=== PATIENT | male | born 1950 | race African-American/Black ===

== ENCOUNTER 2019-12-31 11:45 | Observation (INO) | payer MEDICARE, BC ==
[~2019-12-31] VITALS: Ht 167.6 cm; Wt 81.8 kg
[~2019-12-31 11:45] MED LIST: AMLODIPINE PO; CARAFATE1 G PO; CATAPRES0.2 MG PO; GLUCOTROL 5 MG T5 MG PO; NORVASC10 MG PO; NORVASC5 MG PO; PHOSLO667 MG PO; PROTONIX40 MG PO; RENVELA800 MG PO; [UNRECOGNIZED DRUG - OTHER]
--- NOTE | 2019-12-31 17:27 | MORECARE ---
CASE MANAGEMENT DISCHARGE SUMMARY PATIENT: JUAN WOLFE UNIT: [id number] ADM DATE: 12/31/19 AGE: 69 : 48 SEX: M ROOM/BED: D.2101 AUTHOR: REBECCA BEAL PHYSICIAN: REFERRING PHYSICIAN: RO MYLES DO DATE OF SERVICE: 12/31/19 Discharge Plan Patient Name: JUAN WOLFE Facility: [facility]:[place] : 1950 Planned Disposition: Anticipated Discharge Date: Discharge Date: Expected LOS: Initial Reviewer: [email or web address] Initial Review Date: 12/31/2019 Generated: 12/31/19 6:26 pm Patient Name: JUAN WOLFE Page [phone] at 1727 All edits/amendments must be made on the electronic document DICTATION DATE: 12/31/191726 SENIOR MOBILE APPLICATION DEVELOPER: BLAISE 12/31/191726 RPT#: [id number] DC DATE: STATUS: ADM IN [facility] [address] [place] [address] END OF REPORT
[2019-12-31 17:56] VITALS: Ht 167.6 cm; Wt 81.8 kg
--- NOTE | 2019-12-31 19:00 | NUR ---
REPORT RECEIVED, WILL CONTINUE POC. PATIENT IS AAOX4, SITTING UP IN BED RECEIVED DIALYSIS AT THIS TIME. NO S/S OF DISTRESS OBSERVED, RR EVEN AND UNLABORED ON 2L O2 VIA NC. PATIENT DENIES NEEDS AT THIS TIME. CL IN REACH, BED LOCKED AND LOWERED. COVID-19 PRECAUTIONS TAKING PENDING RESULTS. WILL CTM.
[2020-01-01 04:00] VITALS: BP 164/92
[2020-01-01 06:40] LABS: BASOPHILS 0.2 % (0-2); EOSINOPHILS 2.9 % (0-7); HEMATOCRIT 33.3 % (42.0-54.0); HEMOGLOBIN 10.3 g/dL (13.5-17.5); IMMATURE GRANULOCYTES 0.1 % (0-5); LYMPHOCYTES 10.1 % (15-50); MCH 31.3 pg (26.0-34.0); MCHC 30.9 g/dL (31.0-37.0); MCV 101.2 fL (80.0-100.0); MEAN PLATELET VOLUME 9.7 fL (7.4-10.4); MONOCYTES 7.5 % (2-11); NEUTROPHILS 79.2 % (40-80); RBC 3.29 10x6/uL (4.20-6.10); RDW 13.4 % (11.5-14.5); WBC 9.4 10x3/uL (4.8-10.8)
[2020-01-01 06:42] LABS: ANION GAP 13.6 mmol/L (8-16); CALCIUM 8.4 mg/dL (8.5-10.1); CARBON DIOXIDE 28.8 mmol/L (21.0-32.0); CREATININE - SERUM 11.5 mg/dL (0.6-1.3); POTASSIUM - SERUM 4.4 mmol/L (3.5-5.1)
[2020-01-01 06:48] LABS: PLATELET COUNT 279 10x3/uL (130-400)
[2020-01-01 08:26] VITALS: BP 183/96
--- NOTE | 2020-01-01 09:06 | MORECARE ---
CASE MANAGEMENT DISCHARGE SUMMARY PATIENT: JUAN WOLFE UNIT: [id number] ADM DATE: 12/31/19 AGE: 69 : 48 SEX: M ROOM/BED: D.2103 AUTHOR: REBECCA BEAL PHYSICIAN: REFERRING PHYSICIAN: RO MYLES DO DATE OF SERVICE: 01/01/20 Discharge Plan Patient Name: JUAN WOLFE [facility] [facility] 1950 Planned Disposition: Anticipated Discharge Date: Discharge Date: Expected LOS: Initial Reviewer: [email or web address] Initial Review Date: 12/31/2019 Generated: 01/01/20 10:06 am Coverage Notice Reviewer: [id number] - Stephanie Field Notice Issued Date-Time: 01/01/2020 8:33 Notice Type: Medicare Outpatient Observation Notice Notice Delivered To: Patient Relationship to Patient: Self Color Paste Mixing Supervisor Name: Juan Wolfe Delivery Method: HAND - Hand Delivered Samira Days: Prior Verbal Notification: Recipient Understood Notice: Yes Recipient Signature: Yes Med Rec Note Co-signed by Attending: Coverage Notice Comment: EVARISTO signed with patient permission (he is in isolation). Original provided by patient's nurse to patient. Copy to chart. Last DP export: 12/31/19 4:27 p Patient Name: JUAN WOLFE Page [phone] at 0906 All edits/amendments must be made on the electronic document DICTATION DATE: 01/01/20905 MARQUETRY WORKER: BLAISE 01/01/20905 RPT#: [id number] DC DATE: STATUS: ADM IN [facility] [address] [place] [address] END OF REPORT
--- NOTE | 2020-01-01 14:55 | MORECARE ---
CASE MANAGEMENT DISCHARGE SUMMARY PATIENT: JUAN WOLFE UNIT: [id number] ADM DATE: 12/31/19 AGE: 69 : 48 SEX: M ROOM/BED: D.2101 AUTHOR: REBECCA BEAL PHYSICIAN: REFERRING PHYSICIAN: RO MYLES DO DATE OF SERVICE: 01/01/20 Discharge Plan Patient Name: JUAN WOLFE [facility] [facility] 1950 Planned Disposition: Anticipated Discharge Date: Discharge Date: Expected LOS: Initial Reviewer: [email or web address] Initial Review Date: 12/31/2019 Generated: 01/01/20 3:54 pm Comments DCP- Discharge Planning Updated by [email or web address]: Stephanie Field on 01/01/20 1:[address] Patient has been re-tested here at [facility] on 12/31, the results should be back this evening. He is a patient at [facility], M/W/F. Coverage Notice Reviewer: [id number] - Stephanie Field Notice Issued Date-Time: 01/01/2020 8:33 Notice Type: Medicare Outpatient Observation Notice Notice Delivered To: Patient Relationship to Patient: Self Infrastructure Architect Name: Juan Wolfe Delivery Method: HAND - Hand Delivered Samira Days: Prior Verbal Notification: Recipient Understood Notice: Yes Recipient Signature: Yes Med Rec Note Co-signed by Attending: Coverage Notice Comment: LOERA signed with patient permission (he is in isolation). Original provided by patient's nurse to patient. Copy to chart. Last DP export: 01/01/20 8:06 a Patient Name: JUAN WOLFE Page [phone] at 1455 All edits/amendments must be made on the electronic document DICTATION DATE: 01/01/201453 REACTOR TECHNICIAN: BLAISE 01/01/201453 RPT#: [id number] DC DATE: STATUS: ADM IN [facility] [address] [place] [address] END OF REPORT
--- NOTE | 2020-01-01 15:15 | NUR ---
I have reviewed this patient and I concur with the Shift Assessment completed by the Licensed Practical Nurse today this shift.
--- NOTE | 2020-01-01 19:15 | NUR ---
REPORT RECEIVED, WILL CONTINUE POC. PATIENT IS AAOX4, SITTING UP IN SIDE OF BED. NO S/S OF DISTRESS OBSERVED, RR EVEN AND UNLABORED ON 2L O2 VIA NC. PIV TO LT HAND, PATENT, SL. PATIENT DENIES NEEDS AT THIS TIME. CL IN REACH, BED LOCKED AND LOWERED. NEGATIVE COVID RESULTS RECEIVED AND REPORTED TO PATIENT. WILL CTM.
[2020-01-01 20:00] VITALS: BP 143/78
--- NOTE | 2020-01-01 20:00 | NUR ---
NOTIFIED BY LAB THAT PT'S COVID TEST RESULT IS NEGATIVE. PRIMARY NURSE NOTIFIED. ISOLATION DISCONTINUED.
--- NOTE | 2020-01-02 03:54 | NUR ---
I have reviewed this patient and I concur with the Shift Assessment completed by the Licensed Practical Nurse today this shift.
--- NOTE | 2020-01-02 06:29 | NUR ---
TRANSFERED PATIENT TO ROOM 2106 VIA WHEELCHAIR. PATIENT SITTING UP IN CHAIR, NO S/S OF DISTRESS OBSERVED, RR EVEN AND UNLABORED ON 2L O2 VIA NC. CL IN REACH, BED LOCKED AND LOWERED. WILL CTM.
[2020-01-02 08:00] VITALS: BP 150/83
[2020-01-02] MEDS ORDERED: ZITHROMAX250 MG PO (09:00)
--- NOTE | 2020-01-02 11:59 | NUR ---
SALINE LOCK TAKEN OUT AND DRESSING APPLIED, DISCHARGE INSTRUCTIONS WITH SISTER, TO CAR VIA WHEELCHAIR. STABLE CONDITION.
--- NOTE | 2020-01-02 14:03 | MORECARE ---
CASE MANAGEMENT DISCHARGE SUMMARY PATIENT: JUAN WOLFE UNIT: [id number] ADM DATE: 12/31/19 AGE: 69 : 48 SEX: M ROOM/BED: D.210 AUTHOR: REBECCA BEAL PHYSICIAN: REFERRING PHYSICIAN: RO MYLES DO DATE OF SERVICE: 01/02/20 Discharge Plan Patient Name: JUAN WOLFE [facility] [facility] 1950 Planned Disposition: Anticipated Discharge Date: Discharge Date: 01/02/2020 Expected LOS: Initial Reviewer: [email or web address] Initial Review Date: 12/31/2019 Generated: 01/02/20 3:03 pm Comments DCP- Discharge Planning Updated by [email or web address]: Stephanie Field on 01/01/20 1:[address] Patient has been re-tested here at on 12/31, the results should be back this evening. He is a patient at [facility], M/W/F. Coverage Notice Reviewer: [id number] - Stephanie Field Notice Issued Date-Time: 01/01/2020 8:33 Notice Type: Medicare Outpatient Observation Notice Notice Delivered To: Patient Relationship to Patient: Self Learning Center Instructor Name: Juan Wolfe Delivery Method: HAND - Hand Delivered Samira Days: Prior Verbal Notification: Recipient Understood Notice: Yes Recipient Signature: Yes Med Rec Note Co-signed by Attending: Coverage Notice Comment: LOERA signed with patient permission (he is in isolation). Original provided by patient's nurse to patient. Copy to chart. Last DP export: 01/01/20 1:54 p Patient Name: JUAN WOLFE Page 27913 at 1403 All edits/amendments must be made on the electronic document DICTATION DATE: 01/02/20 140 RUBBER INSULATOR: BLAISE 01/02/20 1403 RPT#: [id number] DC DATE:01/02/20 STATUS: DIS IN [facility] [address] [place] [address] END OF REPORT
== END 2020-01-02 12:01 | disposition home or self-care (01) ==
LOC: D.ER 11:45 → OBSVTIME 12:42 → D.M2 12:42
PROVIDERS: Family Medicine; ADMIT Internal Medicine; ATTEND Internal Medicine
DX: E11.22 Type 2 diabetes mellitus with diabetic chronic kidney disease (principal); I12.0 Hypertensive chronic kidney disease with stage 5 chronic kidney disease or end stage renal disease; N18.6 End stage renal disease; R06.02 Shortness of breath; Z20.828 Contact with and (suspected) exposure to other viral communicable diseases; N25.81 Secondary hyperparathyroidism of renal origin; Z79.84 Long term (current) use of oral hypoglycemic drugs; Z99.2 Dependence on renal dialysis

== ENCOUNTER 2020-01-03 05:10 | Inpatient (IN) | payer MEDICARE, BC ==
[~2020-01-03] VITALS: Ht 167.6 cm; Wt 108.9 kg
--- NOTE | ~2020-01-03 | HEMODYNAMI ---
PATIENT:JUAN WOLFE MEDICAL RECORD: [id number] : 46 [facility] [id number] ADMISSION DATE: 01/03/20 Generatedon:01/04/202011:26 Patient name: JUAN WOLFE Patient #: [id number] SSN: DO B: 1950 Date of study: 01/04/2020 Page: Of Hemodynamic Procedure Report Patient Data Patient Demographics Procedure consent was obtained First Name: JUAN Gender: Male Last Name: YANETH : 1950 Patient #: [id number] Age: 69 year(s) Race: Black Additional ID: [id number] Contact details [address]: [address] [place] [address] State: [place] City: [place] Zip code: [address] Past Medical History Allergies: No known allergies Admission Admission Data Admission Date: 01/03/2020 Admission Time: 6:51 Room #: D.2124 Height (in.): 66.14 BSA: 2.21 (m2) Height (cm.): 168 BMI: 40.39 (kg/m2) Weight (lbs.): 251.33 Weight (kg.): 114 Lab Results Lab Result Date: 01/04/2020 Lab Result Time: 0:00 Biochemistry Name Units Result Min Max BUN mg/dl 98 --(----)-* 7 18 Creatinine mg/dl 14.9 --(----)-* 0.6 1.3 eGFR ml/min 4 *-(----)-- 90 120 AM CBC Name Units Result Min Max Hematocrit % 31.5 *-(----)-- 42 54 Hemoglobin g/dl 9.8 *-(----)-- 13.5 17.5 Procedure Procedure Types Cath Procedure Diagnostic Procedure LHC LH w/Coronaries Sedation Charges Moderate Sedation up to 15 minutes PCI Procedure Coronary Stent Coronary Stent Initial Hemochron ACT Test Procedure Description Procedure Date Procedure Date: 01/04/2020 Procedure Start Time: 11:04 Procedure End Time: 11:24 Procedure Staff Name Function Marcelo Cisse MD Performing Physician Vannessa Machuca RT Monitor Rebecca Zhou RN Nurse Alberta Marie RT Scrub Madhuri Navarro RT Hospitality Recruiter Indication Chest pain Procedure Data Cath Procedure Fluoroscopy Diagnostic fluoroscopy Total fluoroscopy Time: 2.6 time: 2.6 min min Diagnostic fluoroscopy Total fluoroscopy dose: 891 dose: 891 mGy mGy Contrast Material Contrast Material Type Amount (ml) Isovue 300 98 Entry Location Entry Primary Successful Side Size Upsize Upsize Entry Closure Succes sful Closure Location (Fr) 1 (Fr) 2 (Fr) Remarks Device Remarks Femoral Right 5 Fr 6 Fr Exoseal artery Short Estimated blood loss: 10 ml Diagnostic catheters Device Type Used For End Catheter Placement MULTIPACK JL 4.0 5Fr Left Coronary catheter Angiography MULTIPACK 3DRC 5Fr Right Coronary catheter Angiography MULTIPACK Pigtail 5 Fr LV Angiography catheter Procedure Complications No complications Procedure Medications Medication Administration Route Dosage 0.9% NaCl I.V. Oxygen etCO2 Nasal cannula 2 l/min Lidocaine 2% added to field 20 Heparin Flush Bag added to field 2 bags (1000units/500ml NS) Versed I.V. 2 mg Fentanyl I.V. 50 mcg Heparin Bolus I.V. 5000 units Integrilin (Bolus I.V. 10.2 ml 2mg/ml) Integrilin Drip I.V. drip 9 ml/hr (75mg/100ml) Hemodynamics Rest BSA: 2.21 (m2) O2 Consumption: Estimated: 258.11 (ml/min) O2 Consumption indexed : Estimated:116.79 (ml/min/m) Heart Rate: 73 (bpm) Pressure Samples Time Site Value (mmHg) Purpose Heart Use Rate(bpm) 11:09 LV 123/26,48 Snapshot 57 Gradients Valve Time Site Site Mean SEP/DFP Peak To Heart Use 1 2 (mmHg) (sec/min) Peak Rate (mmHg) (bpm) Aortic 11:09 LV AO 50 Snapshots Pre Cath Intra NCS Post Cath Vital Signs Time Heart Resp SPO2 etCO2 NIBP (mmHg) Rhythm Pain Sedation Rate (ipm) (%) (mmHg) Status Level (bpm) 10:47:13 61 19 96 39.1 137/83(100) NSR 0 (11) 10(A) , No pain 10:51:43 62 17 99 42.1 130/88(120) NSR 0 (11) 10(A) , No pain 10:56:10 63 21 98 41.4 127/88(104) NSR 0 (11) 10(A) , No pain 11:00:34 66 22 98 40.6 126/81(96) NSR 0 (11) 10(A) , No pain 11:05:00 65 21 97 36.9 137/87(109) NSR 0 (11) 9(A) , No pain 11:09:26 57 16 98 22.5 130/77(110) SB 0 (11) 9(A) , No pain 11:14:07 57 20 96 36 124/74(100) SB 0 (11) 9(A) , No pain 11:18:31 55 34 98 46.6 133/89(111) SB 0 (11) 10(A) , No pain 11:22:57 56 17 98 45.1 131/90(109) SB 0 (11) 10(A) , No pain Medications Time Medication Route Dose Verified Delivered Reason Notes Effectiveness by by 10:45:59 0.9% NaCl I.V. kvo Marcelo Rebecca used for ml/hr [place] Abelardo procedure MD RAPP 10:46:05 Oxygen etCO2 2 Marcelo Rebecca used for Nasal l/min [facility] procedure cannula MD RAPP 10:46:12 Lidocaine 2% added 20ml Marcelo Robertson for local to vial [facility] anesthetic field MD COLLAZO 10:46:16 Heparin Flush added 2 Marcelo Marcelo used for Bag to bags [facility] procedure (1000units/500ml field MD COLLAZO NS) 11:02:43 Versed I.V. 2 mg Marcelo Rebecca for sedation St Tate Zhou MD, RN 11:02:52 Fentanyl I.V. 50 Marcelo Rebecca for sedation mcg St Tate Zhou MD, RN 11:12:00 Heparin Bolus I.V. 5000 Marcelo Rebecca for verif ied units [facility] anticoagulation with Dr. MD RAPP [place] 11:12:18 Integrilin I.V. 10.2 Marcelo Rebecca for verif ied (Bolus 2mg/ml) ml [facility] antiplatelet with Dr. MD RAPP therapy [place] 11:21:13 Integrilin Drip I.V. 9 Marcelo Rebecca for (75mg/100ml) drip ml/hr St Tate connell MD RN therapy Procedure Log Time Note 10:30:20 Informed consent obtained and on chart 10:30:22 Madhurianabell Navarro RT(R) sent for patient. Start room use. 10:31:06 Indication : Chest pain 10:32:39 Lab Result : BUN 98 mg/dl 10:32:39 Lab Result : eGFR AM 4 ml/min 10:32:39 Lab Result : Creatinine 14.9 mg/dl 10:32:39 Lab Result : Hematocrit 31.5 % 10:32:39 Lab Result : Hemoglobin 9.8 g/dl 10:32:49 Patient Height : 66.14 inches 10:32:54 Patient Weight : 251.33 lbs 10:33:25 Time tracking: Regular hours (M-F 7:00 - 5:00) 10:33:29 Procedure Status Urgent Heart Cath (IP). 10:33:38 Plan of Care:Hemodynamics will remain stable., Cardiac rhythm will remain stable., Comfort level will be maintained., Respiratory function will remain adequate., Patient/ family verbilizes understanding of procedure., Procedure tolerated without complication., Recovers from procedure without complications.. 10:33:50 H&P Date Dictated: 01/04/2020 Within 30 days and on chart., ER History on chart.. 10:34:11 Patient allergic to No known allergies 10:36:25 Patient received from Med II to CCL 1 Alert and oriented. Tansferred to table in Supine position. 10:36:49 Warm blankets applied, and linda hugger turned on for patient comfort. 10:36:50 Correct patient and procedure confirmed by team. 10:36:50 ECG and BP/O2 sat monitors applied to patient. 10:45:48 Vital chart was started 10:45:59 0.9% NaCl kvo ml/hr I.V. was administered by Rebecca Zhou RN; used for procedure; Verbal order read back and verified. 10:46:05 Oxygen 2 l/min etCO2 Nasal cannula was administered by Rebecca Zhou RN; used for procedure; Verbal order read back and verified. 10:46:12 Lidocaine 2% 20ml vial added to field was administered by Marcelo Cisse MD; for local anesthetic; Verbal order read back and verified. 10:46:16 Heparin Flush Bag (1000units/500ml NS) 2 bags added to field was administered by Marcelo Cisse MD; used for procedure; Verbal order read back and verified. 10:48:49 Baseline sample Acquired. 10:49:28 Rhythm: sinus rhythm 10:49:33 Full Disclosure recording started 10:49:39 Pre-procedure instructions explained to patient. 10:49:39 Pre-op teaching completed and patient verbalized understanding. 10:49:48 Family unavailable. 10:49:50 Patient NPO since Midnight. 10:49:54 Is the patient allergic to Iodine/contrast media? No. 10:50:12 Was the patient premedicated? No 10:50:54 Is patient on blood thinner?Yes 10:51:03 ACC The patient was administered the following blood thiners within the last 24 hours: ACCLovenox 10:51:08 Patient diabetic? No. 10:51:16 ----Pre-sedation anethsthesia assessment.---- 10:51:19 Previous problem with sedation/anesthesia? No ? 10:51:22 Snore? Yes 10:51:24 Sleep apnea? No 10:51:27 Deviated septum? Unknown 10:51:30 Opens mouth fully? Yes 10:51:32 Sticks out tongue? Yes 10:51:37 Airway obstruction? No ? 10:51:40 Dentures? No ? 10:52:23 IV patent on arrival in left hand with 0.9% NaCl at [facility]. 10:52:29 Lab results completed and on chart. 10:52:46 Stress Test: no; N/A ? 10:52:56 Right groin area was prepped with chlora-prep and draped in sterile fashion 10:52:59 Alarms reviewed by R. N. 10:53:00 Sharps counted by scrub and verified by R.N. 10:53:45 Use device set Femoral Dx 10:53:47 ACIST Syringe (00592) opened to sterile field. 10:53:47 Bag Decanter (2002) opened to sterile field. 10:53:48 Medline Cath Pack ([id number]) opened to sterile field. 10:53:49 ACIST Hand Control (46238) opened to sterile field. 10:53:50 ACIST Manifold (07462) opened to sterile field. 10:53:51 DIAGNOSTIC Multipack 5Fr catheter set (HU9212) opened to sterile field. 10:53:52 Tegaderm 4 x 4 (1626W) opened to sterile field. 10:53:55 SHEATH 5FR Whitney (PVS024) opened to sterile field. 10:53:55 EMERALD Guide Wire (637-661) opened to sterile field. 10:56:49 Risk of Mortality: 19.6 10:56:55 Risk of blood transfusion: 24.1 10:57:02 Risk of JEFF: 26.8 10:57:07 Zero performed for pressure channel P1 11:01:58 Physician arrived 11:01:59 --------ALL STOP TIME OUT------ 11:02:01 Final Timeout: patient, procedure, and site verified with staff and physician. All members of the team are in agreement. 11:02:04 Right groin site verified by team. 11:02:09 Fire Safety Assessment: A--An alcohol-based skin anteseptic being used preoperatively., C--Open oxygen or nitrous oxide is being used., D--An ESU, laser, or fiber-optic light is being used. 11:02:14 Physical assessment completed. ASA score P 2 - A patient with mild systemic disease as per Marcelo Cisse MD. 11:02:20 5) <15 or on dialysis Very severe, or end stage kidney failure. 11:02:25 Maximum allowable contrast dose (3.7 X eGFR X 0.75)11 ml. 11:02:31 Sedation plan: IV Moderate Sedation Medication:Versed, Fentanyl 11:02:43 Versed 2 mg I.V. was administered by Rebecca Zohu RN; for sedation; Verbal order read back and verified. 11:02:52 Fentanyl 50 mcg I.V. was administered by Rebecca Zhou RN; for sedation; Verbal order read back and verified. 11:03:01 Baseline sample Acquired. 11:03:21 Baseline sample Acquired. 11:03:28 Procedure started. 11:04:36 Local anesthetic to right femoral artery with Lidocaine 2% by Marcelo Cisse MD.INITIAL ACCESS ONLY 11:05:40 A 5 Fr sheath was inserted into the Right Femoral artery 11:05:48 A MULTIPACK JL 4.0 5Fr catheter was advanced over the wire and used for Left Coronary Angiography. 11:06:06 LCA angiography performed. 11:06:17 Injector settings: Ml/sec: 3, Volume: 6, 11:06:50 Catheter removed. 11:07:02 A MULTIPACK 3DRC 5Fr catheter was advanced over the wire and used for Right Coronary Angiography. 11:07:45 RCA angiography performed. 11:07:52 Injector settings: Ml/sec: 3, Volume: 6, 11:07:56 Catheter removed. 11:08:06 A MULTIPACK Pigtail 5 Fr catheter was advanced over the wire and used for LV Angiography. 11:08:43 GUIDE 6FR XBLAD 3.5 catheter ([id number]) opened to sterile field. 11:08:44 INFLATOR Merit BasixCompak (CG5135) opened to sterile field. 11:08:45 SHEATH 6FR Whitney (PAL022) opened to sterile field. 11:09:26 LV gram done using LEWIS 11:09:34 EF : 40 % 11:09:36 LV hemodynamics recorded. 11:09:39 Injector settings: Ml/sec: 5, Volume: 15, 11:09:41 Catheter removed. 11:10:00 BMW 300cm Nemaha 2 J wire ([id number]) opened to sterile field. 11:10:10 Proceeding to intervention. 11:10:25 Sheath upsized to a 6 Fr Short. 11:10:32 ACC Pre-intervention NO Flow is 3. 11:11:42 Pre PCI Site: Sycuan mLAD has 90% stenosis. 11:11:52 6 Fr XBLAD3.5 guide catheter was inserted over the wire 11:12:00 Heparin Bolus 5000 units I.V. was administered by Rebecca Zhou RN; for anticoagulation; verified with Dr. Ma Verbal order read back and verified. 11:12:00 DDN279 wire advanced. 11:12:18 Integrilin (Bolus 2mg/ml) 10.2 ml I.V. was administered by Rebecca Zhou RN; for antiplatelet therapy; verified with Dr. Ma Verbal order read back and verified. 11:14:21 Wire advanced across lesion. 11:16:41 Place stent Inflation Number: 1 A INTEGRITY RX 3.5 x 15 stent ([id number]) was prepped and advanced across the Mid LAD . The stent was deployed at 14 MARLENE for 0:30 (min:sec) . 11:17:08 Stent catheter was removed intact over wire. 11:17:11 ACC Post-intervention NO Flow is 3. 11:17:19 Post PCI Site: Sycuan mLAD has 0% stenosis. 11:17:22 Wire removed. 11:17:23 Guide catheter removed. 11:17:27 EXOSEAL 6Fr (EX600) opened to sterile field. 11:17:40 Contrast amount:Isovue 300 98ml. 11:17:46 Fluoroscopy time 02.60 minutes. 11:17:53 Fluoroscopy dose: 891 mGy 11:17:53 Flurop Dose total: 891 11:18:01 Dose Area Product 69213 mGy/cm. 11:18:11 Sheath removed intact; hemostasis achieved with Exoseal to the Right Femoral artery. 11:18:16 Procedure ended.(Physican Out) 11:19:39 Maximum allowable dose exceeded? Yes. 11:19:41 Sharps counted by scrub and verified by R.N. 11:19:43 Insertion/operative site no bleeding no hematoma. 11:19:48 Post-op/insertion site Right Femoral artery dressed using a 4 x 4 and Tegaderm. 11:19:56 Post-procedure physical assessment completed. ASA score P 2 - A patient with mild systemic disease as per Marcelo Cisse MD. 11:20:01 Post procedure rhythm: unchanged. 11:20:06 Estimated blood loss: 10 ml 11:20:09 Post procedure instruction explained to patient.Patient verbalizes understanding. 11:20:10 Patient needs reinforcement of post procedure teaching. 11:20:59 Procedure type changed to Cath procedure, Diagnostic procedure, LHC, LHC w/Coronaries, Sedation Charges, Moderate Sedation up to 15 minutes, PCI procedure, Coronary Stent, Coronary Stent Initial, Hemochron ACT Test 11:21:01 Procedure and supply charges have been captured, reviewed, submitted and are correct. 11:21:13 Integrilin Drip (75mg/100ml) 9 ml/hr I.V. drip was administered by Rebecca Zhou RN; for antiplatelet therapy; Verbal order read back and verified. 11:21:42 Procedure Complication : No complications 11:22:02 ACT drawn and resulted at 224 seconds. (normal therapeutic range 180-240 seconds). 11:22:19 Vital chart was stopped 11:22:24 [facility] Findings: MVD- PCI performed (see procedure note) 11:22:29 Operative report dictated upon procedure completion. 11:22:30 See physician's report for complete and final results. 11:22:33 Report given to [facility]. 11:22:38 Patient transfered to [facility] with Bed. 11:24:47 Procedure ended. 11:24:47 Full Disclosure recording stopped 11:25:02 End room use (Document Last) Intervention Summary Intervention Notes Time ActionType Lesion and Equipment Action# Pressure Duration Attributes Used 11:16:41 Place stent Mid LAD INTEGRITY RX 1 14 00:30 3.5 x 15 stent ([id number]) Device Usage Item Name Manufacture Quantity Catalog Hospital Part Current Minimal Lot# / Number Charge Number Stock Stock Serial# Code ACIST Acist 1 09429 582935 673033 215284 20 Syringe Medical (55884) Systems Inc Bag Decanter Microtek 1 2001S 485353 71482 337438 5 (2001S) Medical Inc. Medline Cath Medline 1 [id number] 462824 63782 530941 5 Pack ([id number]) ACIST Hand Acist 1 71033 160516 032389 599396 5 Control Medical (35827) Systems Inc ACIST Acist 1 30952 071195 951088 416965 5 Manifold Medical (80359) Systems Inc DIAGNOSTIC Cardinal 1 EU4424 595464 73965 810614 30 Multipack Health 5Fr catheter set (KZ8100) Tegaderm 4 x 3M 1 1626W 547614 307193 898810 5 4 (1626W) SHEATH 5FR Terumo 1 TMJ131 415814 972462 692721 5 Whitney (EIJ723) EMERALD Cardinal 1 502-455 184598 944937 916552 5 Guide Wire Health (502-455) MULTIPACK JL Cardinal 1 066182 5 4.0 5Fr Health catheter MULTIPACK Cardinal 1 581060 5 3DRC 5Fr Health catheter MULTIPACK Cardinal 1 333704 5 Pigtail 5 Fr Health catheter GUIDE 6FR Cardinal 1 [id number] 316620 596234 838679 10 XBLAD 3.5 Health catheter ([id number]) INFLATOR Merit 1 YI3254 509019 837156 479114 15 [facility] Medical BasixCompak (GC4056) SHEATH 6FR Terumo 1 TWD630 032812 923272 466089 40 Whitney (CNB292) BMW 300cm Almanza 1 [id number] 448942 863643 927737 5 Nem[place] 2 Vascular J wire (4437763N) INTEGRITY RX Medtronic 1 [id number] 696840 882996 323205 5 [id number] 3.5 x 15 stent ([id number]) EXOSEAL 6Fr Cardinal 1 EX600 494941 791575 349000 10 (EX600) Health Signature Audit [place] Stage Time Signature Unsigned Intra-Procedure 01/04/2020 Vannessa 11:25:35 AM Sven RT(R) (CV) Intra-Procedure 01/04/2020 Rebecca Zhou 11:26:06 AM RN Intra-Procedure 01/04/2020 Marcelo Heath 11:26:29 AM Tate COLLAZO [id number] [place] [address]
[~2020-01-03 05:10] MED LIST changes: +ZITHROMAX250 MG PO
[2020-01-03 06:07] LABS: BASOPHILS 0.1 % (0-2); EOSINOPHILS 0.9 % (0-7); HEMATOCRIT 34.1 % (42.0-54.0); HEMOGLOBIN 10.9 g/dL (13.5-17.5); IMMATURE GRANULOCYTES 0.1 % (0-5); LYMPHOCYTES 12.3 % (15-50); MCH 31.8 pg (26.0-34.0); MCV 99.4 fL (80.0-100.0); MEAN PLATELET VOLUME 9.6 fL (7.4-10.4); MONOCYTES 9.2 % (2-11); NEUTROPHILS 77.4 % (40-80); PLATELET COUNT 254 10x3/uL (130-400); RBC 3.43 10x6/uL (4.20-6.10); RDW 13.3 % (11.5-14.5); WBC 10.5 10x3/uL (4.8-10.8)
[2020-01-03 06:16] LABS: APTT 39.1 SECONDS (22.8-39.4); INR 1.06 (0.85-1.17); PROTIME 13.8 SECONDS (11.6-15.0)
[2020-01-03 06:25] LABS: CALC OSMOLALITY 300 mosm/kg (275-300); CALCIUM 8.4 mg/dL (8.5-10.1); CARBON DIOXIDE 24.4 mmol/L (21.0-32.0); CHLORIDE - SERUM 102 mmol/L (98-107); CREATININE - SERUM 13.2 mg/dL (0.6-1.3); GLUCOSE 117 mg/dL (74-106); POTASSIUM - SERUM 4.8 mmol/L (3.5-5.1); SODIUM 138 mmol/L (136-145); UREA NITROGEN 81 mg/dL (7-18); eGFR NON AFRICAN AMERICAN 4 mL/min (90-120)
[2020-01-03 06:35] LABS: ALBUMIN 3.1 g/dL (3.4-5.0); ALKALINE PHOSPHATASE 49 U/L (30-120); ALT (SGPT) 16 U/L (10-68); BILIRUBIN - TOTAL 0.33 mg/dL (0.2-1.3); CKMB 110.2 U/L (0.0-3.6); PROTEIN - SERUM 7.9 g/dL (6.4-8.2)
[2020-01-03 06:37] LABS: CREATINE KINASE 895 UL (21-232)
[2020-01-03 06:38] LABS: TROPONIN-I 43.383 ng/mL (0.000-0.060)
[2020-01-03 06:50] VITALS: BP 146/77
--- NOTE | 2020-01-03 07:30 | NUR ---
ARRIVE TO ROOM VIA WHEELCHAIR FROM ER. ALERT AND ORIENTED X4. AMBULATES TO BED. GAIT STEADY. RECIEVED LOVENOX INJ. DOCTORS AWARE OF ELEVATED TROPONIN. DENIES PAIN. CONTINUE ADMISSION PROCESS AND SAFETY PRECAUTIONS.
[2020-01-03 08:00] VITALS: BP 166/83
[2020-01-03 10:40] VITALS: BP 166/83; BMI 40.4
[2020-01-03 16:00] VITALS: BP 143/74
--- NOTE | 2020-01-03 19:05 | NUR ---
REPORT RECEIVED, PT CARE ASSUMED. PT LYING IN BED WITH EYES CLOSED, RR EVEN AND NONLABORED, NO S/S OF DISTRESS, AROUSES EASILY TO VOICE. DENIES ANY NEEDS AT THIS TIME. BED IN LOWEST, SRX2, CALL LIGHT WITHIN REACH. WILL CTM.
[2020-01-03 20:00] VITALS: BP 129/66
[2020-01-04] VITALS: BP 140/69
[2020-01-04 04:00] VITALS: BP 129/78
[2020-01-04 04:58] LABS: BASOPHILS 0.1 % (0-2); EOSINOPHILS 3.8 % (0-7); HEMATOCRIT 31.5 % (42.0-54.0); HEMOGLOBIN 9.8 g/dL (13.5-17.5); IMMATURE GRANULOCYTES 0.3 % (0-5); LYMPHOCYTES 12.1 % (15-50); MCH 31.2 pg (26.0-34.0); MCHC 31.1 g/dL (31.0-37.0); MCV 100.3 fL (80.0-100.0); MEAN PLATELET VOLUME 10.1 fL (7.4-10.4); MONOCYTES 7.4 % (2-11); NEUTROPHILS 76.3 % (40-80); PLATELET COUNT 266 10x3/uL (130-400); RBC 3.14 10x6/uL (4.20-6.10); RDW 13.3 % (11.5-14.5)
[2020-01-04 05:17] LABS: ANION GAP 20.3 mmol/L (8-16); CREATININE - SERUM 14.9 mg/dL (0.6-1.3); POTASSIUM - SERUM 5.3 mmol/L (3.5-5.1)
--- NOTE | 2020-01-04 07:20 | NUR ---
RECIEVE REPORT. ALERT AND ORIENTED X4. SITTING UP ON SIDE OF BED. SINUS RYTHM 68 ON TELEMETRY. DENIES ANY NEEDS. CONTINUE PLAN OF CARE AND SAFETY PRECAUTIONS.
[2020-01-04 09:00] VITALS: BP 139/82
--- NOTE | 2020-01-04 11:48 | NUR ---
ARRIVES BACK TO ROOM VIA BED FROM PLUG WIRER. SEDATED. AROUSES TO STIMULI. RT GROIN DRESSING CLEAN DRY INTACT. FREE FROM HEMATOMA. FREE FROM BLEEDING. PULSE PALBABLE BILATERALLY. BP-137/69, HR-57 SINUS ABRAHAM, O2-95% WITH 2L NC. CONTINUE PLAN OF CARE AND SAFETY PRECAUTIONS.
[2020-01-04 12:47] VITALS: Ht 167.6 cm; Wt 108.9 kg
[2020-01-04 20:00] VITALS: BP 143/77
[2020-01-05] VITALS: BP 110/48
[2020-01-05 04:00] VITALS: BP 120/66
[2020-01-05 07:06] LABS: CALCIUM 7.8 mg/dL (8.5-10.1); CARBON DIOXIDE 28.6 mmol/L (21.0-32.0); CREATININE - SERUM 11.7 mg/dL (0.6-1.3); POTASSIUM - SERUM 4.6 mmol/L (3.5-5.1)
[2020-01-05 07:19] LABS: BASOPHILS 0.2 % (0-2); EOSINOPHILS 3.4 % (0-7); HEMATOCRIT 33.5 % (42.0-54.0); HEMOGLOBIN 10.4 g/dL (13.5-17.5); IMMATURE GRANULOCYTES 0.3 % (0-5); LYMPHOCYTES 9.1 % (15-50); MCH 31.1 pg (26.0-34.0); MCV 100.3 fL (80.0-100.0); MEAN PLATELET VOLUME 10.5 fL (7.4-10.4); MONOCYTES 9.7 % (2-11); NEUTROPHILS 77.3 % (40-80); PLATELET COUNT 306 10x3/uL (130-400); RBC 3.34 10x6/uL (4.20-6.10); RDW 13.2 % (11.5-14.5); WBC 10.9 10x3/uL (4.8-10.8)
--- NOTE | 2020-01-05 07:20 | NUR ---
RECIEVE REPORT. RESTING IN BED WITH EYES CLOSED. NO SIGNS OF DISTRESS. CONTINUE PLAN OF CARE AND SAFETY PRECAUTIONS.
[2020-01-05 09:36] VITALS: BP 146/77
[2020-01-05 20:00] VITALS: BP 124/58
[2020-01-06 04:00] VITALS: BP 127/66
[2020-01-06 05:33] LABS: BASOPHILS 0.1 % (0-2); EOSINOPHILS 2.9 % (0-7); HEMATOCRIT 31.4 % (42.0-54.0); HEMOGLOBIN 9.8 g/dL (13.5-17.5); IMMATURE GRANULOCYTES 0.1 % (0-5); LYMPHOCYTES 11.6 % (15-50); MCHC 31.2 g/dL (31.0-37.0); MCV 99.4 fL (80.0-100.0); MONOCYTES 10.8 % (2-11); NEUTROPHILS 74.5 % (40-80); PLATELET COUNT 266 10x3/uL (130-400); RBC 3.16 10x6/uL (4.20-6.10); RDW 13.2 % (11.5-14.5); WBC 10.3 10x3/uL (4.8-10.8)
[2020-01-06 05:58] LABS: CALCIUM 7.8 mg/dL (8.5-10.1); CARBON DIOXIDE 25.5 mmol/L (21.0-32.0); CREATININE - SERUM 11.3 mg/dL (0.6-1.3); POTASSIUM - SERUM 4.5 mmol/L (3.5-5.1)
[2020-01-06 07:47] VITALS: BP 117/60
--- NOTE | 2020-01-06 08:18 | OP ---
PATIENT NAME: JUAN WOLFE MEDICAL RECORD: [id number] :46 LOCATION:D. D.2124 ADMISSION DATE:01/03/20 SURGEON: KIERSTEN SANABRIA MD DATE OF OPERATION: 01/04/2020 PROCEDURE: Left heart catheterization, selective coronary angiography, right femoral artery approach. CATHETERS: A 5-Argentine sheath, 5/4 left and right Tegan, 5/4 pig. The procedure was well tolerated. The patient returned to the wilkins, sheath removed. ExoSeal device placed. FINDINGS: Left ventriculography in 30-degree LEWIS view shows mild global hypokinesis, EF mildly reduced 30-40%. CORONARY ANATOMY: LEFT MAIN: Left main is free of disease. LAD: Has a discrete 90% stenosis in its mid portion, obviously infarct related artery. CIRCUMFLEX: Free of disease. RIGHT CORONARY ARTERY: Dominant artery, gives rise to PDA. Mild luminal irregularities, no flow obstructive disease. IMPRESSION: Intervention to LAD momentarily. DESCRIPTION OF PROCEDURE: A 5-Argentine sheath was exchanged for a 6-Argentine sheath. XB LAD guiding catheter provided excellent guide catheter support followed by a BMW wire placed across the 90% stenosed down the distal portion of vessel. Stent deployed was a 3.5 x 15 Integrity nondrug eluting stent to 15 atmospheres. Final angiography shows excellent resolution of 90% stenosis, no significant residual. NO flow was 3 throughout the procedure. Integrilin was used during the case. Sheath closed with ExoSeal device. Plavix was loaded in the lab. TRANSINT:[id number] Voice Confirmation ID: [id number] DOCUMENT ID: [id number] KIERSTEN SANABRIA MD at 0818 CC: [id number] DICTATION DATE: 01/04/20 1131 CV/CVN CV TSC SYSTEM OPERATOR: 01/04/20 2216 ADM IN [place] [id number] [place] [id number]
--- NOTE | 2020-01-06 09:41 | NUR ---
REPORT RECEIVED. WILL CONTINUE WITH POC. PT CURRENTLY SITTING ON EDGE OF BED. CALL LIGHT W/I REACH. FALL PRECAUTIONS IN PLACE. RR EVEN AND UNLABORED ON RA. L.HAND PIV SALINE LOCKED. NO S/S OF DISTRESS NOTED. PT DENIES ANY NEEDS AT THIS TIME. WILL CTM.
--- NOTE | 2020-01-06 14:06 | NUR ---
Nutrition Follow-up: Eating well overall. Ate 100% of breakfast this AM. Diet: Renal Wt: 250# (01/03) Labs noted: K+ 4.5, Ca 7.8 Meds noted: Protonix, Phoslo, electrolyte protocol -Need new wt; noted daily wts ordered. -RD following.
--- NOTE | 2020-01-06 14:35 | MORECARE ---
CASE MANAGEMENT DISCHARGE SUMMARY PATIENT: JUAN WOLFE UNIT: [id number] ADM DATE: 01/03/20 AGE: 69 : 48 SEX: M ROOM/BED: D.2084 AUTHOR: REBECCA BEAL PHYSICIAN: REFERRING PHYSICIAN: RO MYLES DO DATE OF SERVICE: 01/06/20 Discharge Plan Patient Name: JUAN WOLFE Facility: [facility]:[place] : 1950 Planned Disposition: Anticipated Discharge Date: Discharge Date: Expected LOS: Initial Reviewer: [email or web address] Initial Review Date: 01/03/2020 Generated: 01/06/20 3:35 pm Patient Name: JUAN WOLFE Page [id number] at 1435 All edits/amendments must be made on the electronic document DICTATION DATE: 01/06/20 1435 MOTOR BOSS: BLAISE 01/06/20 1435 RPT#: [id number] DC DATE: STATUS: ADM IN [facility] [address] [place] [address] END OF REPORT
--- NOTE | 2020-01-06 16:38 | MORECARE ---
CASE MANAGEMENT DISCHARGE SUMMARY PATIENT: JUAN WOLFE UNIT: [id number] ADM DATE: 01/03/20 AGE: 69 : 48 SEX: M ROOM/BED: D.5901 AUTHOR: LIANDOC PHYSICIAN: REFERRING PHYSICIAN: RO MYLES DO DATE OF SERVICE: 01/06/20 Discharge Plan Patient Name: JUAN WOLFE Facility: [facility]:[place] : 1950 Planned Disposition: Anticipated Discharge Date: Discharge Date: Expected LOS: Initial Reviewer: [email or web address] Initial Review Date: 01/03/2020 Generated: 01/06/20 5:37 pm Comments DCP- Discharge Planning Updated by [email or web address]: Stephanie Field on 01/06/20 3:[address] CM met with patient regarding DC plans/needs. Patient is alert/oriented and in agreement to proceed. Patient lives in an apartment, alone. Patient drives himself to and from HD and appointments. States "I have nieces/nephews who can drive me, if I don't feel well". PCP: Does not remember. Pharmacy: [facility]. DME: None. HD: //, [place] HD unit. Emergency contact: Nicole Wolfe ([phone]). CM discussed Rehab, HHS, SNF with the patient. Patient shakes head "no". Patient states to "call my daughter, Nicole". CM contacted Nicole Wolfe, regarding DC needs. Nicole is in agreement with [facility] in [place]. Her choice is [facility] ([phone]), who has the highest rating. Nicole has plans to call [facility], [place], for personal care. CM encouraged Nicole to obtain a medicine box for medication safety and nursing can go over patient's medication, when they make a visit. CM will contact [facility] ([phone]), for a referral. CM will follow and assist with further DC plans. Coverage Notice Reviewer: [id number] - Stephanie Field Notice Issued Date-Time: 01/06/2020 16:30 Notice Type: IM Discharge Notice Notice Delivered To: Patient Relationship to Patient: Self Costumer Name: Juan Wolfe Delivery Method: HAND - Hand Delivered Samira Days: Prior Verbal Notification: Recipient Understood Notice: Yes Recipient Signature: Yes Med Rec Note Co-signed by Attending: Coverage Notice Comment: DC IMM signed/given to patient. Reviewer: [id number] Omari Field Notice Issued Date-Time: 01/06/2020 16:30 Notice Type: Patient Choice Letter Notice Delivered To: Patient Relationship to Patient: Self Costumer Name: Juan Wolfe Delivery Method: HAND - Hand Delivered Samira Days: Prior Verbal Notification: Recipient Understood Notice: Yes Recipient Signature: Yes Med Rec Note Co-signed by Attending: Coverage Notice Comment: CM discussed the purpose of a patient choice and explained that his daughter Nicole Wolfe requested HHS with [facility]. Patient is in agreement to same. Signed form signed/given to patient. original to chart. Last DP export: 01/06/20 1:35 p Patient Name: JUAN WOLFE Page [id number] at 1638 All edits/amendments must be made on the electronic document DICTATION DATE: 01/06/20 1637 STONE GRADER: BLAISE 01/06/20 1637 RPT#: [id number] DC DATE: STATUS: ADM IN [facility] [address] [place] [address] END OF REPORT
--- NOTE | 2020-01-06 17:09 | MORECARE ---
CASE MANAGEMENT DISCHARGE SUMMARY PATIENT: JUAN WOLFE UNIT: [id number] ADM DATE: 01/03/20 AGE: 69 : 48 SEX: M ROOM/BED: D.4791 AUTHOR: REBECCA BEAL PHYSICIAN: REFERRING PHYSICIAN: RO MYLES DO DATE OF SERVICE: 01/06/20 Discharge Plan Patient Name: JUAN WOLFE Facility: [facility]:[place] : 1950 Planned Disposition: Anticipated Discharge Date: Discharge Date: Expected LOS: Initial Reviewer: [email or web address] Initial Review Date: 01/03/2020 Generated: 01/06/20 6:08 pm Comments DCP- Discharge Planning Updated by [id number]: Stephanie Field on 01/06/20 4:[address] Patient is in agreement to [facility]. CM will contact [facility] 01/06, with the referral. CM met with patient regarding DC plans/needs. Patient is alert/oriented and in agreement to proceed. Patient lives in an apartment, alone. Patient drives himself to and from HD and appointments. States "I have nieces/nephews who can drive me, if I don't feel well". PCP: Does not remember. Pharmacy: [facility]. DME: None. HD: //[facility] HD unit. Emergency contact: Nicole Wolfe ([phone]). CM discussed Rehab, HHS, SNF with the patient. Patient shakes head "no". Patient states to "call my daughter, Nicole". CM contacted Nicole Wolfe, regarding DC needs. Nicole is in agreement with [facility] in [place]. Her choice is [facility] ([phone]), who has the highest rating. Nicole [facility] plans [facility]. CM encouraged Nicole to obtain a medicine box for medication safety and nursing can go over patient's medication, when they make a visit. CM will contact [facility] ([phone]), for a referral. CM will follow and assist with further DC plans. Coverage Notice Reviewer: [id number] - Stephanie Field Notice Issued Date-Time: 01/06/2020 16:30 Notice Type: IM Discharge Notice Notice Delivered To: Patient Relationship to Patient: Self Senior Category Manager Name: Juan Wolfe Delivery Method: HAND - Hand Delivered Samira Days: Prior Verbal Notification: Recipient Understood Notice: Yes Recipient Signature: Yes Med Rec Note Co-signed by Attending: Coverage Notice Comment: DC IMM signed/given to patient. Reviewer: [email or web address] Omari Field Notice Issued Date-Time: 01/06/2020 16:30 Notice Type: Patient Choice Letter Notice Delivered To: Patient Relationship to Patient: Self Senior Category Manager Name: Juan Wolfe Delivery Method: HAND - Hand Delivered Smaira Days: Prior Verbal Notification: Recipient Understood Notice: Yes Recipient Signature: Yes Med Rec Note Co-signed by Attending: Coverage Notice Comment: CM discussed the purpose of a patient choice and explained that his daughter, Nicole Wolfe requested HHS with [facility]. Patient is in agreement to same. Signed form signed/given to patient. original to chart. Last DP export: 01/06/20 3:38 p Patient Name: JUAN WOLFE Page [phone] at 1709 All edits/amendments must be made on the electronic document DICTATION DATE: 01/06/201707 EXERCISE SCIENTIST: BLAISE 01/06/201707 RPT#: [id number] DC DATE: STATUS: ADM IN [facility] [address] [place] [address] END OF REPORT
[2020-01-06 19:18] VITALS: BP 105/69
[2020-01-06 23:20] VITALS: BP 127/65
[2020-01-07 04:00] VITALS: BP 126/72
[2020-01-07 07:07] LABS: BASOPHILS 0.4 % (0-2); EOSINOPHILS 4.1 % (0-7); HEMATOCRIT 30.9 % (42.0-54.0); HEMOGLOBIN 9.9 g/dL (13.5-17.5); IMMATURE GRANULOCYTES 0.6 % (0-5); LYMPHOCYTES 11.9 % (15-50); MCH 31.8 pg (26.0-34.0); MCV 99.4 fL (80.0-100.0); MEAN PLATELET VOLUME 10.8 fL (7.4-10.4); PLATELET COUNT 304 10x3/uL (130-400); RBC 3.11 10x6/uL (4.20-6.10); RDW 13.3 % (11.5-14.5); WBC 10.7 10x3/uL (4.8-10.8)
[2020-01-07 07:17] LABS: ANION GAP 22.1 mmol/L (8-16); CALCIUM 7.7 mg/dL (8.5-10.1); CARBON DIOXIDE 25.8 mmol/L (21.0-32.0); CREATININE - SERUM 13.8 mg/dL (0.6-1.3); POTASSIUM - SERUM 4.9 mmol/L (3.5-5.1)
[2020-01-07 08:10] VITALS: BP 137/62
--- NOTE | 2020-01-07 10:21 | MORECARE ---
CASE MANAGEMENT DISCHARGE SUMMARY PATIENT: JUAN WOLFE UNIT: [id number] ADM DATE: 01/03/20 AGE: 69 : 48 SEX: M ROOM/BED: D.7550 AUTHOR: REBECCA BEAL PHYSICIAN: REFERRING PHYSICIAN: RO MYLES DO DATE OF SERVICE: 01/07/20 Discharge Plan Patient Name: JUAN WOLFE Facility: [facility]:[place] : 1950 Planned Disposition: Anticipated Discharge Date: Discharge Date: Expected LOS: Initial Reviewer: [email or web address] Initial Review Date: 01/03/2020 Generated: 01/07/20 11:20 am Comments DCP- Discharge Planning Updated by [email or web address]: Stephanie Field on 01/07/20 9:[address] Patient is in agreement to [facility]. CM will contact [facility] 01/06, with the referral. CM met with patient regarding DC plans/needs. Patient is alert/oriented and in agreement to proceed. Patient lives in an apartment, alone. Patient drives himself to and from HD and appointments. States "I have nieces/nephews who can drive me, if I don't feel well". PCP: Does not remember. Pharmacy: [facility]. DME: None. HD: //[facility] HD unit. Emergency contact: Nicole Wolfe ([phone]). CM discussed Rehab, HHS, SNF with the patient. Patient shakes head "no". Patient states to "call my daughter, Nicole". CM contacted Nicole Wolfe, regarding DC needs. Nicole is in agreement with [facility] in [place]. Her choice is [facility] ([phone]), who has the highest rating. [facility]. CM encouraged Nicole to obtain a medicine box for medication safety and nursing can go over patient's medication, when they make a visit. CM will contact [facility] ([phone]), for a referral. CM will follow and assist with further DC plans. Coverage Notice Reviewer: [id number] - Stephanie Field Notice Issued Date-Time: 01/06/2020 16:30 Notice Type: IM Discharge Notice Notice Delivered To: Patient Relationship to Patient: Self Car Dryer Name: Juan Wolfe Delivery Method: HAND - Hand Delivered Samira Days: Prior Verbal Notification: Recipient Understood Notice: Yes Recipient Signature: Yes Med Rec Note Co-signed by Attending: Coverage Notice Comment: DC IMM signed/given to patient. Reviewer: [id number] Omari Field Notice Issued Date-Time: 01/06/2020 16:30 Notice Type: Patient Choice Letter Notice Delivered To: Patient Relationship to Patient: Self Car Dryer Name: Juan Wolfe Delivery Method: HAND - Hand Delivered Samira Days: Prior Verbal Notification: Recipient Understood Notice: Yes Recipient Signature: Yes Med Rec Note Co-signed by Attending: Coverage Notice Comment: CM discussed the purpose of a patient choice and explained that his daughter, Nicole Wolfe requested HHS with [facility]. Patient is in agreement to same. Signed form signed/given to patient. original to chart. Last DP export: 01/06/20 4:09 p Patient Name: JUAN WOLFE Page [phone] at 1021 All edits/amendments must be made on the electronic document DICTATION DATE: 01/07/20 1020 INVESTMENT BROKER: BLAISE 01/07/20 1020 RPT#: [id number] DC DATE: STATUS: ADM IN [facility] [address] [place] [address] END OF REPORT
[2020-01-07 15:29] VITALS: BP 110/58
--- NOTE | 2020-01-07 19:00 | NUR ---
PT RESTING WITH EYES CLOSED. RESPIRATIONS EVEN AND UNLABORED. HE IS ON 1L NC. VSS. HE DENIES PAIN OR NEEDS. BED IS LOW AND CALL LIGHT WITHIN REACH.
[2020-01-07 21:35] VITALS: BP 144/79
[2020-01-08] VITALS: BP 127/68
[2020-01-08 04:00] VITALS: BP 134/78
[2020-01-08 08:00] VITALS: BP 128/64
[2020-01-08 09:53] LABS: BASOPHILS 0.2 % (0-2); EOSINOPHILS 4.1 % (0-7); HEMOGLOBIN 9.4 g/dL (13.5-17.5); IMMATURE GRANULOCYTES 0.3 % (0-5); LYMPHOCYTES 13.2 % (15-50); MCHC 31.3 g/dL (31.0-37.0); MEAN PLATELET VOLUME 10.3 fL (7.4-10.4); MONOCYTES 7.6 % (2-11); NEUTROPHILS 74.6 % (40-80); PLATELET COUNT 293 10x3/uL (130-400); RBC 3.03 10x6/uL (4.20-6.10); RDW 13.2 % (11.5-14.5)
[2020-01-08 09:59] LABS: ANION GAP 21.7 mmol/L (8-16); CALCIUM 7.7 mg/dL (8.5-10.1); CARBON DIOXIDE 23.8 mmol/L (21.0-32.0); CREATININE - SERUM 12.5 mg/dL (0.6-1.3); POTASSIUM - SERUM 4.5 mmol/L (3.5-5.1)
[2020-01-08 12:00] VITALS: BP 128/67
[2020-01-08] MEDS ORDERED: PLAVIX75 MG PO (12:03)
[2020-01-08] MEDS ORDERED: LOPRESSOR25 MG PO (12:03)
[2020-01-08] MEDS ORDERED: ASPIRIN325 MG PO (12:04)
--- NOTE | 2020-01-08 15:00 | NUR ---
PT DISCHARGED HOME VIA WHEELCHAIR WITH FMAILY. PIV REMOVED WITH CATHETER TIP FULLY INTACT. PT SIGNED PROPER DISCHARGE INSTRUCTIONS AND REMOVED ALL VALUABLES FROM THE ROOM. TELEMETRY REMOVED AND RETURNED.
--- NOTE | 2020-01-11 07:57 | MORECARE ---
CASE MANAGEMENT DISCHARGE SUMMARY PATIENT: JUAN WOLFE UNIT: [id number] ADM DATE: 01/03/20 AGE: 69 : 48 SEX: M ROOM/BED: D.3287 AUTHOR: REBECCA BEAL PHYSICIAN: REFERRING PHYSICIAN: RO MYLES DO DATE OF SERVICE: 01/11/20 Discharge Plan Patient Name: JUAN WOLFE Facility: [facility]:[place] : 1950 Planned Disposition: Anticipated Discharge Date: Discharge Date: 01/08/2020 Expected LOS: Initial Reviewer: [email or web address] Initial Review Date: 01/03/2020 Generated: 01/11/20 8:57 am Comments DCP- Discharge Planning Updated by [email or web address]: Stephanie Field on 01/07/20 9:[address] Patient is in agreement to [facility]. CM will contact [facility] 01/06, with the referral. CM met with patient regarding DC plans/needs. Patient is alert/oriented and in agreement to proceed. Patient lives in an apartment, alone. Patient drives himself to and from HD and appointments. States "I have nieces/nephews who can drive me, if I don't feel well". PCP: Does not remember. Pharmacy: [facility]. DME: None. HD: //[facility] HD unit. Emergency contact: Nicole Wolfe ([phone]). CM discussed Rehab, HHS, SNF with the patient. Patient shakes head "no". Patient states to "call my daughter, Nicole". CM contacted Nicole Heaubrey, regarding DC needs. Nicole is in agreement with [facility] in [place]. Her choice is [facility] ([phone]), who has the highest rating. Nicole [facility]. CM encouraged Nicole to obtain a medicine box for medication safety and nursing can go over patient's medication, when they make a visit. CM will contact [facility] ([phone]), for a referral. CM will follow and assist with further DC plans. Coverage Notice Reviewer: [id number] - Stephanie Field Notice Issued Date-Time: 01/06/2020 16:30 Notice Type: IM Discharge Notice Notice Delivered To: Patient Relationship to Patient: Self Pega Developer Name: Juan Wolfe Delivery Method: HAND - Hand Delivered Samira Days: Prior Verbal Notification: Recipient Understood Notice: Yes Recipient Signature: Yes Med Rec Note Co-signed by Attending: Coverage Notice Comment: DC IMM signed/given to patient. Reviewer: [id number] Omari Field Notice Issued Date-Time: 01/06/2020 16:30 Notice Type: Patient Choice Letter Notice Delivered To: Patient Relationship to Patient: Self Pega Developer Name: Juan Wolfe Delivery Method: HAND - Hand Delivered Samira Days: Prior Verbal Notification: Recipient Understood Notice: Yes Recipient Signature: Yes Med Rec Note Co-signed by Attending: Coverage Notice Comment: CM discussed the purpose of a patient choice and explained that his daughter, Nicole Wolfe requested HHS with [facility]. Patient is in agreement to same. Signed form signed/given to patient. original to chart. Last DP export: 01/07/20 9:21 a Patient Name: JUAN WOLFE Page [phone] at 0757 All edits/amendments must be made on the electronic document DICTATION DATE: 01/11/20756 MARKET CONSULTANT: BLAISE 01/11/20 0757 RPT#: [id number] DC DATE:01/08/20 STATUS: DIS IN [place] [id number] [place] [address] END OF REPORT
== END 2020-01-08 15:01 | disposition home health service (06) | DRG 248 ==
LOC: D.ER 05:10 → D.M2 06:51
PROVIDERS: Family Medicine; Internal Medicine Interventional Cardiology; ADMIT Internal Medicine; ATTEND Internal Medicine
PROC: 5A1D70Z Performance of Urinary Filtration, Intermittent, Less than 6 Hours Per Day (ICD-10-PCS; 2020-01-03)
PROC: B2111ZZ Fluoroscopy of Multiple Coronary Arteries using Low Osmolar Contrast (ICD-10-PCS; 2020-01-04)
PROC: B2151ZZ Fluoroscopy of Left Heart using Low Osmolar Contrast (ICD-10-PCS; 2020-01-04)
PROC: 02703DZ Dilation of Coronary Artery, One Artery with Intraluminal Device, Percutaneous Approach (ICD-10-PCS; principal; 2020-01-04 10:30)
PROC: 4A023N7 Measurement of Cardiac Sampling and Pressure, Left Heart, Percutaneous Approach (ICD-10-PCS; 2020-01-04 10:30)
DX: I21.4 Non-ST elevation (NSTEMI) myocardial infarction (principal); J18.9 Pneumonia, unspecified organism; N18.6 End stage renal disease; I12.0 Hypertensive chronic kidney disease with stage 5 chronic kidney disease or end stage renal disease; Z68.41 Body mass index [BMI] 40.0-44.9, adult; E11.22 Type 2 diabetes mellitus with diabetic chronic kidney disease; Z87.891 Personal history of nicotine dependence; E66.01 Morbid (severe) obesity due to excess calories

== ENCOUNTER → 2020-02-15 09:15 | Outpatient (CLI) | payer MEDICARE, BC ==
[2020-01-04 12:47] VITALS: BMI 40.3
[~2020-02-15 09:15] MED LIST changes: +ASPIRIN325 MG PO; +LOPRESSOR25 MG PO; +PLAVIX75 MG PO
== END | disposition home or self-care (01) ==
LOC: D.RT 01-29 13:30
PROVIDERS: ATTEND Internal Medicine Pulmonary Disease
DX: R06.02 Shortness of breath (principal); R06.00 Dyspnea, unspecified; J81.1 Chronic pulmonary edema

== ENCOUNTER → 2020-09-22 08:24 | Outpatient (CLI) | payer MEDICARE, BC ==
[2020-01-04 12:47] VITALS: BMI 40.3
--- NOTE | ~2020-09-22 | EC ---
PATIENT:JUAN WOLFE DATE OF SERVICE: 09/22/20 SEX: M MEDICAL RECORD: [id number] DATE OF : [birth year] [facility] AGE OF PATIENT: 69 ADMISSION DATE: 09/22/20 REFERRING PHYSICIAN: INTERPRETING PHYSICIAN: KIERSTEN SANABRIA MD ECHOCARDIOGRAM REPORT ECHO CHARGES 4 ECHO COMPLETE Date: 09/22/20 CLINICAL DIAGNOSIS: CARDIOMYOPATHY/ ASSESS EF HX OF CAD/HTN/RENAL DISEASE ECHOCARDIOGRAPHIC MEASUREMENTS (adult normal given) AC root (d.<3.7cm) 3.8 cm LV Septum d (<1.2 cm> 1.7 cm Valve Excursion 2.0 cm LV Septum (systole) 2.0 cm Left Atria (s.<4.0cm> 4.4 cm LVPW d(<1.2cm) 1.9 cm RV (d.<2.3cm) 5.4 cm LVPW (sytole) 2.1 cm LV diastole(<5.6CM) 6.3 cm MV E-F(>70mm/sec) cm LV systole 4.3 cm LVOT Diameter 2.2 cm MV exc.(>10mm) 1.8 cm Est.ejection fraction (50-75%) % DOPPLER: LVIT cm/sec A 102.0cm/sec E 103.0 cm/sec LA cm/sec RVSP 21 mmHg LVOT 109 cm/sec AOP1/2T m/s Asc. Ao 186 cm/sec RVOT 88 cm/sec RA cm/sec PA 110 cm/sec AV Gradient Peak 13.87mmHg AV Mean 7.10 mmHg AV Area 2.2 cm MV Gradient Peak 9.28 mmHg MV Mean 3.75 mmHg MV Area cm COMMENTS: Bathroom Tiling Professional: 2 ROYA ROGERS Technical Sales Director: 3 Dr. Ma TAPE# PACS Pericardial Effusion N DATE OF SERVICE: Adequate 2D, color-flow imaging, spectral Doppler, and M-Mode. FINDINGS: LVH is present. LV internal dimensions are normal. Wall motion is normal. EF is greater than or equal to 55%. Aortic valve is sclerotic. No evidence of stenosis by Doppler interrogation. Left atrium is mildly dilated at 4.4 cm. Mitral valve shows no prolapse. Mild MR. Right side is grossly normal. Trace TR. ECHOCARDIOGRAM REPORT [id number] JUAN WOLFE TRANSINT:[id number] Voice Confirmation ID: [id number] DOCUMENT ID: [id number] KIERSTEN SANABRIA MD CC: [id number] DICTATION DATE: 09/23/20 1314 PRACTICE PHYSICIAN: 09/23/20 2313 DEP CLI 09/22/20 [facility] [address] [place] [id number]
== END | disposition home or self-care (01) ==
LOC: D.HCCECHO 08:24
PROVIDERS: ATTEND Internal Medicine Interventional Cardiology
DX: I42.9 Cardiomyopathy, unspecified (principal)